=== PATIENT | male | born 1970 | race Caucasian/White ===

== ENCOUNTER 2020-07-13 13:01 | Emergency (ER) | payer MEDICARE ==
[~2020-07-13 13:01] MED LIST: CLEOCIN HCL300 MG PO; GABAPENTIN400 MG PO; NAPROSYN500 MG PO; SEROQUEL25 MG PO; VISTARIL 50 MG50 MG PO; ZITHROMAX500 MG PO
[2020-07-13] MEDS ORDERED: PREDNISONE 50 M50 MG PO (14:09)
[2020-07-13] MEDS ORDERED: CYCLOBENZAPRINE10 MG PO (14:09)
== END 2020-07-13 14:35 | disposition home or self-care (01) ==
LOC: ER1 13:01
DX: M54.12 Radiculopathy, cervical region (principal); E11.9 Type 2 diabetes mellitus without complications; Z79.82 Long term (current) use of aspirin; Z87.891 Personal history of nicotine dependence; Z79.84 Long term (current) use of oral hypoglycemic drugs; Z79.899 Other long term (current) drug therapy
CPT/HCPCS: 96372; 99283; J1885; J2360

== ENCOUNTER → 2020-08-04 | Outpatient (CLI) | payer MEDICARE ==
[~2020-08-04] MED LIST changes: +CYCLOBENZAPRINE10 MG PO; +PREDNISONE 50 M50 MG PO
== END ==
LOC: EMI 07-25 11:15
DX: M54.10 Radiculopathy, site unspecified (principal); M50.31 Other cervical disc degeneration, high cervical region; M48.02 Spinal stenosis, cervical region; M51.34 Other intervertebral disc degeneration, thoracic region
CPT/HCPCS: 72141

== ENCOUNTER 2020-09-13 22:39 | Emergency (ER) | payer MEDICARE ==
[2020-09-13 23:02] LABS: HEMOGLOBIN 15.9 gm/dl (14.0-17.5); RED BLOOD COUNT 4.97 M/UL (4.20-5.50); WHITE BLOOD COUNT 7.3 K/UL (4.5-11.0)
[2020-09-13 23:21] LABS: BUN/CREATININE RATIO 20 (0-10)
== END 2020-09-14 00:35 | disposition left against medical advice (07) ==
LOC: ER1 22:39
PROVIDERS: Family Medicine
DX: R55 Syncope and collapse (principal); R42 Dizziness and giddiness; Z88.8 Allergy status to other drugs, medicaments and biological substances
CPT/HCPCS: 80053; 82550; 82553; 83874; 84484; 85025; 93005; 99284

== ENCOUNTER 2020-10-30 16:29 | Emergency (ER) | payer MEDICARE | END 2020-10-30 19:10 | disposition left against medical advice (07) | LOC: ER1 16:29 | DX: Z53.21 Procedure and treatment not carried out due to patient leaving prior to being seen by health care provider (principal) ==

== ENCOUNTER → 2021-03-02 | Outpatient (CLI) | payer MEDICARE | LOC: EXRD 14:35 | DX: G62.9 Polyneuropathy, unspecified (principal) | CPT/HCPCS: 93922 ==